=== PATIENT | male | born 1965 | race Caucasian/White ===

== ENCOUNTER 2020-04-15 14:59 | Inpatient (IN) | payer BC ==
[~2020-04-15] VITALS: Ht 175.3 cm; Wt 96.4 kg
[2020-04-15] VITALS (13 sets, daily range): BP systolic 120–141; BP diastolic 64–81
[2020-04-15] MEDS ORDERED: morphine 4 MG/ML inj SYRINge IV ONE (15:25)
[2020-04-15] MEDS ORDERED: ondansetron/PF 4mg/2ml inj IV ONE (15:25)
[2020-04-15 15:35] LABS: BASOPHILS % (AUTO) 0.2 % (0-1); EOSINOPHILS % (AUTO) 0.4 % (0-6); HEMATOCRIT 40.6 % (42.0-52.0); HEMOGLOBIN 13.1 g/dl (14.0-17.9); LYMPHOCYTES # (AUTO) 0.9 X10'3 (1.1-4.8); LYMPHOCYTES % (AUTO) 8.5 % (21-51); MEAN CORPUSCULAR HEMOGLOBIN 24.6 PG (27.0-31.0); MEAN CORPUSCULAR HGB CONC 32.3 g/dL (33.0-36.5); MEAN CORPUSCULAR VOLUME 76.3 FL (78-98); MEAN PLATELET VOLUME 8.9 FL (7.4-10.4); MONOCYTES # (AUTO) 0.7 X10'3 (0-0.9); MONOCYTES % (AUTO) 6.8 % (2-12); NEUTROPHILS # (AUTO) 9.2 X10'3 (1.8-7.7); NEUTROPHILS % (AUTO) 84.1 % (42-75); PLATELET COUNT 217 X10'3 (140-440); RED BLOOD COUNT 5.32 X10'6 (4.70-6.10); RED CELL DISTRIBUTION WIDTH 15.7 % (11.5-14.5)
[2020-04-15 15:50] LABS: ALANINE AMINOTRANSFERASE 17 U/L (12-78); ALBUMIN 4.1 G/DL (3.4-5.0); ALBUMIN/GLOBULIN RATIO 1.2 (1.1-1.5); ALKALINE PHOSPHATASE 62 IU/L (46-116); ANION GAP 10 (8-16); ASPARTATE AMINO TRANSFERASE 12 U/L (10-37); BLOOD UREA NITROGEN 11 MG/DL (7-18); BUN/CREATININE RATIO 8.3 (5.4-32.0); CALCIUM 8.9 MG/DL (8.5-10.1); CHLORIDE 100 MMOL/L (99-107); CREATININE 1.33 MG/DL (0.60-1.10); GLUCOSE 113 MG/DL (70-104); LIPASE 53 U/L (73-393); POTASSIUM 3.8 MMOL/L (3.5-5.1); SODIUM 138 MMOL/L (135-145); TOTAL CARBON DIOXIDE 27.7 MMOL/L (24-32); TOTAL PROTEIN 7.5 G/DL (6.4-8.2); eGFR 56 ML/MIN
[2020-04-15] MEDS ORDERED: iohexol 300mg/ml 100ml inj. ONE (16:02)
[2020-04-15] MEDS ORDERED: normal saline 1000ml 1,000 ML IV ONE (16:15)
[2020-04-15] MEDS ORDERED: ceFOXitin inj 1,000 MG in normal saline 100ml IV soln 100 ML IV ONE (16:50)
[2020-04-15 17:11] LABS: C-REACTIVE PROTEIN 7.23 MG/DL (0.0-0.5)
[2020-04-15 17:39] LABS: PARTIAL THROMBOPLASTIN TIME 29 SECONDS (22-32)
[2020-04-15 18:14] LABS: CLARITY,URINE CLEAR (Clear); COLOR,URINE YELLOW (Yellow); GLUCOSE, URINE NEGATIVE (Neg); KETONES,URINE NEGATIVE (Neg); LEUKOCYTE ESTERASE ,URINE NEGATIVE (Neg); NITRITES, URINE NEGATIVE (Neg); OCCULT BLOOD,URINE NEGATIVE (Neg); PROTEIN,URINE NEGATIVE (Neg); UROBILINOGEN,URINE 0.2 E.U/dL (0.2-1.0)
[2020-04-15 18:16] LABS: UA COLLECTION TYPE NON-SPECIFIED
[2020-04-15] MEDS ORDERED: BUPIVAcaine/PF 2.5 mg/ml (0.25%) 30ml vial ONE (18:25)
[2020-04-15] MEDS ORDERED: LIDOcaine 1% 30ml preserv. free vial ONE (18:25)
[2020-04-15] MEDS ORDERED: morphine 4 MG/ML inj SYRINge IM ONE (19:10)
[2020-04-15] MEDS ORDERED: morphine 2 MG/ML inj. syringe IV PRN (19:30)
[2020-04-15] MEDS ORDERED: proCHLORperazine 10 MG/2 ml inj IV PRN (19:30)
[2020-04-15] MEDS ORDERED: meperidine/PF 25mg/ml syringe IV PRN ×2 (19:30)
[2020-04-15] MEDS ORDERED: morphine 4 MG/ML inj SYRINge IV PRN (19:30)
[2020-04-15] MEDS ORDERED: ondansetron/PF 4mg/2ml inj IV PRN ×2 (19:30→21:15)
[2020-04-15] MEDS ORDERED: acetaminophen 1,000mg/100ml IV 100 ML IV PRN (19:30)
[2020-04-15] MEDS ORDERED: hydrALAZINE 20mg/ml inj. IV PRN (19:30)
[2020-04-15] MEDS ORDERED: labetalol 20mg/4ml (5mg/ml) syringe IV PRN (19:30)
[2020-04-15] MEDS ORDERED: ringers solution, lacted 1,000 ML IV SCH (19:30)
[2020-04-15] MEDS ORDERED: midazolam 2 mg/2 ml injection ONE (19:45)
[2020-04-15] MEDS ORDERED: famotidine/PF 10 mg/ml inj IV ONE (19:45)
[2020-04-15] MEDS ORDERED: fentaNYL /PF 50mcg/ml 5ml ampule ONE (19:49)
[2020-04-15] MEDS ORDERED: LIDOcaine 2% 5ml jelly ONE (19:49)
[2020-04-15] MEDS ORDERED: propofol inj 20 ML IV ONE (20:10)
[2020-04-15] MEDS ORDERED: rocuronium 10mg/ml inj IV ONE (20:10)
[2020-04-15] MEDS ORDERED: ceFOXitin 1000 MG inj ONE (20:10)
[2020-04-15] MEDS ORDERED: dexamethasone sod phosphate 4mg/ml inj. ONE (20:10)
[2020-04-15] MEDS ORDERED: 0.9 % SODIUM CHLORIDE 10 ML VIAL ONE ×2 (20:11)
[2020-04-15] MEDS ORDERED: ondansetron/PF 4mg/2ml inj ONE (20:11)
[2020-04-15] MEDS ORDERED: LIDOcaine 2% (20mg/ml) 5ml vial ONE (20:11)
[2020-04-15] MEDS ORDERED: sugammadex 200mg/2ml injection IV ONE (21:00)
[2020-04-15] MEDS ORDERED: mineral oil/petrolatum ophthal oint ONE (21:10)
[2020-04-15] MEDS ORDERED: naloxone 0.4 mg/ml inj IV PRN (21:15)
[2020-04-15] MEDS ORDERED: Potassium Cl inj 20 MEQ in ringers solution, lacted 1,000 ML IV SCH (21:15)
[2020-04-15] MEDS ORDERED: CADD PCA waste documentation MC PRN (21:15)
--- NOTE | 2020-04-15 21:20 | NUR ---
Received from OR via BED, accompanied by Anesthesiologist DR SIMMONS and report given by Anesthesiologist. PT DROWSY, DENIES PAIN, ABDOMEN W/3 LAP SITES W/KATHERINE TO BULB SUCTION W/SMALL AMT OF S/S DRAINAGE. Addendum: 04/15/20 at 2153 by Latasha Saunders RN Amended: Links added.
[2020-04-15] MEDS: meperidine/PF 25mg/ml syringe IV PRN ×2 (21:53→21:58)
--- NOTE | 2020-04-15 22:40 | NUR ---
RECEIVED PATIENT FROM RECOVERY ROOM NURSE SHON MCCULLOUGH AND ASSUMED PATIENT CARE
--- NOTE | 2020-04-15 22:40 | NUR ---
Report called to receiving nurse. Transferred via BED, 1 BAG OF PERSONAL Belongings SENT W/PT TO ROOM 4024A, RECEIVING RN AT BEDSIDE TO RECEIVE PT, BLL, CALL LIGHT GIVEN, SIDE RAILS UP X 2. Special Issues communicated to receiving nurse. YES. Addendum: 04/15/20 at 2248 by Latasha Saunders RN Amended: Links added.
[2020-04-15] MEDS: HYDROmorphone/NS 1 mg/ml CADD 50 ML IV SCH ×2 (22:41→23:00)
[2020-04-15] MEDS: Potassium Cl inj 20 MEQ in ringers solution, lacted 1,000 ML IV SCH ×2 (22:44→23:14)
[2020-04-15] MEDS: piperacillin/tazo 4.5gm/100ml 100 ML IV SCH (23:38)
[2020-04-16] VITALS (8 sets, daily range): BP systolic 108–134; BP diastolic 65–81
[2020-04-16] MEDS ORDERED: ceFOXitin 1 GM/D5W 50mL IVPB 50 ML IV SCH
[2020-04-16] MEDS: HYDROmorphone/NS 1 mg/ml CADD 50 ML IV SCH ×12 (01:00→23:00)
[2020-04-16 05:54] LABS: BASOPHILS % (AUTO) 0.1 % (0-1); EOSINOPHILS % (AUTO) 0 % (0-6); HEMATOCRIT 36.6 % (42.0-52.0); HEMOGLOBIN 11.9 g/dl (14.0-17.9); LYMPHOCYTES # (AUTO) 0.4 X10'3 (1.1-4.8); LYMPHOCYTES % (AUTO) 3.6 % (21-51); MEAN CORPUSCULAR HGB CONC 32.5 g/dL (33.0-36.5); MEAN CORPUSCULAR VOLUME 76.9 FL (78-98); MEAN PLATELET VOLUME 8.8 FL (7.4-10.4); MONOCYTES # (AUTO) 0.7 X10'3 (0-0.9); MONOCYTES % (AUTO) 5.5 % (2-12); NEUTROPHILS # (AUTO) 11.2 X10'3 (1.8-7.7); NEUTROPHILS % (AUTO) 90.8 % (42-75); PLATELET COUNT 170 X10'3 (140-440); RED BLOOD COUNT 4.76 X10'6 (4.70-6.10); RED CELL DISTRIBUTION WIDTH 15.7 % (11.5-14.5); WHITE BLOOD COUNT 12.4 X10'3 (4.5-11.0)
[2020-04-16 05:58] LABS: ALBUMIN 3.3 G/DL (3.4-5.0); ANION GAP 9 (8-16); BLOOD UREA NITROGEN 12 MG/DL (7-18); BUN/CREATININE RATIO 8.4 (5.4-32.0); CALCIUM 8.4 MG/DL (8.5-10.1); CHLORIDE 101 MMOL/L (99-107); CREATININE 1.43 MG/DL (0.60-1.10); GLUCOSE 181 MG/DL (70-104); POTASSIUM 4.2 MMOL/L (3.5-5.1); SODIUM 136 MMOL/L (135-145); TOTAL CARBON DIOXIDE 26.2 MMOL/L (24-32); eGFR 52 ML/MIN
--- NOTE | 2020-04-16 06:15 | NUR ---
REPORT GIVEN TO THERON MCCULLOUGH
[2020-04-16] MEDS ORDERED: FLEC100T35 PO (07:46)
[2020-04-16] MEDS: heparin, porcine 5000 units/ml vial SQ SCH ×2 (08:55→20:00)
[2020-04-16] MEDS: piperacillin/tazo 4.5gm/100ml 100 ML IV SCH ×3 (09:10→23:51)
[2020-04-16] MEDS: Potassium Cl inj 20 MEQ in ringers solution, lacted 1,000 ML IV SCH (17:07)
[2020-04-16] MEDS: flecainide 50mg tablet PO SCH (19:51)
[2020-04-17] MEDS: HYDROmorphone/NS 1 mg/ml CADD 50 ML IV SCH ×7 (01:00→13:00)
[2020-04-17] MEDS: Potassium Cl inj 20 MEQ in ringers solution, lacted 1,000 ML IV SCH ×3 (05:07→13:50)
[2020-04-17 06:00] VITALS: BP 126/84
--- NOTE | 2020-04-17 06:14 | NUR ---
REPORT GIVEN TO HARVEY MCCULLOUGH
[2020-04-17 06:26] LABS: BASOPHILS % (AUTO) 0.2 % (0-1); EOSINOPHILS # (AUTO) 0.1 X10'3 (0-0.9); EOSINOPHILS % (AUTO) 0.8 % (0-6); HEMATOCRIT 32.1 % (42.0-52.0); HEMOGLOBIN 10.5 g/dl (14.0-17.9); LYMPHOCYTES # (AUTO) 0.8 X10'3 (1.1-4.8); LYMPHOCYTES % (AUTO) 9.8 % (21-51); MEAN CORPUSCULAR HEMOGLOBIN 24.9 PG (27.0-31.0); MEAN CORPUSCULAR HGB CONC 32.6 g/dL (33.0-36.5); MEAN CORPUSCULAR VOLUME 76.3 FL (78-98); MEAN PLATELET VOLUME 9.1 FL (7.4-10.4); MONOCYTES # (AUTO) 0.7 X10'3 (0-0.9); MONOCYTES % (AUTO) 8.4 % (2-12); NEUTROPHILS # (AUTO) 6.4 X10'3 (1.8-7.7); NEUTROPHILS % (AUTO) 80.8 % (42-75); PLATELET COUNT 156 X10'3 (140-440); RED BLOOD COUNT 4.21 X10'6 (4.70-6.10); RED CELL DISTRIBUTION WIDTH 15.9 % (11.5-14.5)
[2020-04-17 06:34] LABS: ALBUMIN 2.8 G/DL (3.4-5.0); ANION GAP 3 (8-16); BLOOD UREA NITROGEN 13 MG/DL (7-18); BUN/CREATININE RATIO 8.9 (5.4-32.0); CALCIUM 8.4 MG/DL (8.5-10.1); CHLORIDE 104 MMOL/L (99-107); CREATININE 1.46 MG/DL (0.60-1.10); GLUCOSE 116 MG/DL (70-104); POTASSIUM 4.3 MMOL/L (3.5-5.1); SODIUM 138 MMOL/L (135-145); eGFR 51 ML/MIN
--- NOTE | 2020-04-17 06:38 | NUR ---
Patient in room [facility] 4023. I have received report from Monica form O/N and had the opportunity to ask questions and assume patient care.
[2020-04-17] MEDS: flecainide 50mg tablet PO SCH (07:34)
[2020-04-17] MEDS: piperacillin/tazo 4.5gm/100ml 100 ML IV SCH (07:34)
[2020-04-17] MEDS: heparin, porcine 5000 units/ml vial SQ SCH (07:39)
[2020-04-17 10:00] VITALS: BP 132/83
--- NOTE | 2020-04-17 14:59 | NUR ---
Removed KATHERINE drain. 40cc out
--- NOTE | 2020-04-17 15:28 | NUR ---
Safe DC. All personal items with patient. Educated patient on wound care and follow up with provider.
== END 2020-04-17 15:28 | disposition home or self-care (01) | DRG 340 ==
LOC: ER 14:59 → UNDOADMOB 19:32 → ORTHO 4S 19:32 → OBSVTOIN 21:13 → INTOOBSV 21:13
PROVIDERS: ADMIT Surgery; ATTEND Surgery
PROC: 8E0W4CZ Robotic Assisted Procedure of Trunk Region, Percutaneous Endoscopic Approach (ICD-10-PCS; 2020-04-15)
PROC: 0DTJ4ZZ Resection of Appendix, Percutaneous Endoscopic Approach (ICD-10-PCS; principal; 2020-04-15 19:45)
DX: K35.33 Acute appendicitis with perforation, localized peritonitis, and gangrene, with abscess (principal); I48.91 Unspecified atrial fibrillation; K38.1 Appendicular concretions; N20.0 Calculus of kidney; Z79.899 Other long term (current) drug therapy
CPT/HCPCS: 96365; 96375; 99285; Z7506; Z7508; 36415; 71045; 74177; 80048; 80053; 81003; 83690; 85025; 85610; 85730; 86140; 87081; 93005; A4215; A4618; C9399; G0378; J0694; J1100; J1170; J2001; J2175; J2250; J2270; J2405; J2543; J2704; J3010; J3480; J3490; J7030; J7120; Q9967

== ENCOUNTER 2020-05-19 13:04 | Outpatient (CLI) | payer BC ==
[~2020-05-19 13:04] MED LIST: FLEC100T35 PO
[2020-05-19] MEDS ORDERED: iohexol 300mg/ml 100ml inj. ONE (13:09)
== END 2020-05-19 23:59 | disposition home or self-care (01) ==
LOC: 64 CT 13:04
PROVIDERS: ATTEND Surgery
DX: K76.0 Fatty (change of) liver, not elsewhere classified (principal); N20.0 Calculus of kidney; K76.89 Other specified diseases of liver; J98.11 Atelectasis
CPT/HCPCS: 74177; Q9967

== ENCOUNTER 2020-05-26 18:32 | Emergency (ER) | payer BC ==
[~2020-05-26] VITALS: Ht 175.3 cm; Wt 95.2 kg
[2020-05-26 19:01] LABS: BASOPHILS # (AUTO) 0.1 X10'3 (0-0.2); BASOPHILS % (AUTO) 1.3 % (0-1); EOSINOPHILS # (AUTO) 0.4 X10'3 (0-0.9); EOSINOPHILS % (AUTO) 5.4 % (0-6); HEMATOCRIT 38.4 % (42.0-52.0); HEMOGLOBIN 12.4 g/dl (14.0-17.9); LYMPHOCYTES # (AUTO) 1.7 X10'3 (1.1-4.8); MEAN CORPUSCULAR HEMOGLOBIN 24.3 PG (27.0-31.0); MEAN CORPUSCULAR HGB CONC 32.2 g/dL (33.0-36.5); MEAN CORPUSCULAR VOLUME 75.4 FL (78-98); MEAN PLATELET VOLUME 8.5 FL (7.4-10.4); MONOCYTES # (AUTO) 0.6 X10'3 (0-0.9); MONOCYTES % (AUTO) 9.4 % (2-12); NEUTROPHILS # (AUTO) 3.8 X10'3 (1.8-7.7); NEUTROPHILS % (AUTO) 57.9 % (42-75); PLATELET COUNT 217 X10'3 (140-440); RED BLOOD COUNT 5.08 X10'6 (4.70-6.10); RED CELL DISTRIBUTION WIDTH 17.2 % (11.5-14.5); WHITE BLOOD COUNT 6.5 X10'3 (4.5-11.0)
[2020-05-26 19:18] LABS: ALANINE AMINOTRANSFERASE 25 U/L (12-78); ALBUMIN 3.9 G/DL (3.4-5.0); ALBUMIN/GLOBULIN RATIO 1.2 (1.1-1.5); ALKALINE PHOSPHATASE 65 IU/L (46-116); ANION GAP 9 (8-16); ASPARTATE AMINO TRANSFERASE 17 U/L (10-37); BILIRUBIN,TOTAL 0.3 MG/DL (0.1-1.0); BLOOD UREA NITROGEN 17 MG/DL (7-18); CHLORIDE 106 MMOL/L (99-107); CREATININE 1.42 MG/DL (0.60-1.10); GLUCOSE 95 MG/DL (70-104); LIPASE 131 U/L (73-393); POTASSIUM 4.1 MMOL/L (3.5-5.1); SODIUM 141 MMOL/L (135-145); TOTAL CARBON DIOXIDE 26.4 MMOL/L (24-32); TOTAL PROTEIN 7.1 G/DL (6.4-8.2); eGFR 52 ML/MIN
[2020-05-26] MEDS ORDERED: ondansetron/PF 4mg/2ml inj IV ONE (20:10)
[2020-05-26] MEDS ORDERED: morphine 4 MG/ML inj SYRINge IV ONE (20:10)
--- NOTE | 2020-05-26 20:59 | NUR ---
Pt resting in bed, unable to urinate at this time.
[2020-05-26] MEDS ORDERED: morphine 4 MG/ML inj SYRINge IM ONE (21:10)
[2020-05-26] MEDS ORDERED: ondansetron 4mg rapidly disintigrating tab PO ONE (21:10)
[2020-05-26 21:47] LABS: CLARITY,URINE SLIGHTLY CLOUDY (Clear); COLOR,URINE YELLOW (Yellow); GLUCOSE, URINE NEGATIVE (Neg); KETONES,URINE NEGATIVE (Neg); LEUKOCYTE ESTERASE ,URINE NEGATIVE (Neg); NITRITES, URINE NEGATIVE (Neg); OCCULT BLOOD,URINE LARGE (Neg); PROTEIN,URINE NEGATIVE (Neg); UROBILINOGEN,URINE 0.2 E.U/dL (0.2-1.0)
[2020-05-26 21:49] LABS: UA COLLECTION TYPE CLN CATCH MIDSTREAM
[2020-05-26 21:52] LABS: WBC,URINE NONE SEEN /HPF (0-4)
[2020-05-26 21:53] LABS: BACTERIA,URINE FEW /HPF (Neg); SQUAMOUS EPITHELIAL CELL,UR NONE SEEN /LPF (FEW)
[2020-05-26 22:02] VITALS: BP 147/88
[2020-05-26] MEDS ORDERED: HYDR-3965 PO (22:16)
[2020-05-26] MEDS ORDERED: IBUP-1984 PO (22:16)
[2020-05-26] MEDS ORDERED: ONDA4TAB6 PO (22:16)
[2020-05-26] MEDS ORDERED: FLO0.4C PO (22:16)
== END 2020-05-26 22:31 | disposition home or self-care (01) ==
LOC: ER 18:32
DX: N23 Unspecified renal colic (principal); Z87.442 Personal history of urinary calculi; Z79.899 Other long term (current) drug therapy; Z90.49 Acquired absence of other specified parts of digestive tract
CPT/HCPCS: 36415; 80053; 81001; 83690; 85025; 96372; 96374; 96375; 99284; J2270; J2405